=== PATIENT | female | born 1990 | race Two or more races ===

== ENCOUNTER 2018-11-16 15:44 | Outpatient (CLI) | payer OTHER ==
[~2018-11-16 15:44] MED LIST: IOPHEN DM-100 MG/5 M PO; PRENATAL CAPLE1 EACH PO; ZITHROMAX500 MG PO
== END 2018-11-16 15:53 | disposition home or self-care (01) ==
LOC: LAB 15:44
DX: E55.9 Vitamin D deficiency, unspecified (principal); E78.2 Mixed hyperlipidemia; E03.8 Other specified hypothyroidism; Z13.1 Encounter for screening for diabetes mellitus; L20.89 Other atopic dermatitis

== ENCOUNTER 2018-12-25 20:50 | Emergency (ER) | payer OTHER ==
[~2018-12-25] VITALS: Ht 167.6 cm; Wt 99.8 kg
== END 2018-12-25 22:13 | disposition home or self-care (01) ==
LOC: ER 20:50
DX: J31.2 Chronic pharyngitis (principal)

== ENCOUNTER 2019-06-02 06:41 | Outpatient (CLI) | payer OTHER | END 2019-06-02 07:25 | disposition home or self-care (01) | LOC: LAB 06:41 | DX: E03.8 Other specified hypothyroidism (principal); E78.00 Pure hypercholesterolemia, unspecified ==

== ENCOUNTER 2019-07-14 13:39 | Outpatient (CLI) | payer OTHER | END 2019-07-14 13:43 | disposition home or self-care (01) | LOC: LAB 13:39 | DX: R05 Cough (principal); J11.1 Influenza due to unidentified influenza virus with other respiratory manifestations ==

== ENCOUNTER 2019-10-30 12:26 | Emergency (ER) | payer OTHER ==
[~2019-10-30] VITALS: Ht 167.6 cm; Wt 92.1 kg
== END 2019-10-30 15:55 | disposition home or self-care (01) ==
LOC: ER 12:26
DX: H10.89 Other conjunctivitis (principal)

== ENCOUNTER → 2019-11-28 14:00 | Outpatient (CLI) | payer OTHER | END | disposition home or self-care (01) | LOC: LAB 14:00 | DX: J11.1 Influenza due to unidentified influenza virus with other respiratory manifestations (principal); J06.9 Acute upper respiratory infection, unspecified ==

== ENCOUNTER 2019-12-11 17:17 | Emergency (ER) | payer OTHER ==
[~2019-12-11] VITALS: Ht 167.6 cm; Wt 104.3 kg
== END 2019-12-11 20:53 | disposition home or self-care (01) ==
LOC: ER 17:17
DX: B34.9 Viral infection, unspecified (principal)

== ENCOUNTER 2021-05-01 08:40 | Emergency (ER) | payer OTHER ==
[~2021-05-01] VITALS: Ht 167.6 cm; Wt 104.3 kg
[2021-05-01] MEDS ORDERED: INTESTINEX680 M1 PO (17:15)
[2021-05-01] MEDS ORDERED: PEPCID AC20 MG PO (17:15)
[2021-05-01] MEDS ORDERED: LEVSIN/SL0.125 MG PO (17:15)
[2021-05-01] MEDS ORDERED: TESSALON PERLE100 M1 PO (17:15)
== END 2021-05-01 17:36 ==
LOC: ER 08:40
DX: K52.9 Noninfective gastroenteritis and colitis, unspecified (principal); B34.9 Viral infection, unspecified

== ENCOUNTER 2024-04-19 11:10 | Emergency (ER) | payer OTHER ==
[~2024-04-19] VITALS: Ht 167.6 cm; Wt 119.7 kg
[~2024-04-19 11:10] MED LIST changes: +INTESTINEX680 M1 PO; +LEVSIN/SL0.125 MG PO; +PEPCID AC20 MG PO; +TESSALON PERLE100 M1 PO
[2024-04-19] MEDS ORDERED: ORPHENADRINE CITRATE 30 MG/ML AMPUL IM ONE (13:15)
[2024-04-19] MEDS ORDERED: KETOROLAC TROMETHAMINE 60 MG VIAL IM ONE (13:15)
[2024-04-19] MEDS ORDERED: DEXAMETHASONE SODIUM PHOSPHATE 4 MG/ML VIAL IM ONE (13:15)
[2024-04-19] MEDS ORDERED: CELEBREX200MG PO (15:17)
[2024-04-19] MEDS ORDERED: METAXALONE800 MG PO (15:17)
== END 2024-04-19 15:30 ==
LOC: ER 11:11
DX: M54.30 Sciatica, unspecified side (principal); M54.50 Low back pain, unspecified; M79.605 Pain in left leg; Z91.013 Allergy to seafood